=== PATIENT | female | born 1955 | race Caucasian/White ===

== ENCOUNTER 2018-02-03 09:57 | Day surgery (SDC) | payer OTHER ==
[~2018-02-03] VITALS: Ht 167.6 cm; Wt 83.6 kg
[~2018-02-03 09:57] MED LIST: AMOX500 PO; AZIT250; Adipex-P37.5 MG PO; ESZO1; HYDACE5 PO; LEVFLO500 PO; METCAR500 PO; Multi-Day Vita1 EACH PO; PIRO20 PO; PRED20 PO; Synthroid50 MCG; TRAZ100 PO; TRAZ50 PO; VITAMIN D 2 PO; [UNRECOGNIZED DRUG - OTHER] PO
== END 2018-02-03 16:01 | disposition home or self-care (01) ==
LOC: ORSCSDS 09:57
PROVIDERS: Orthopaedic Surgery
PROC: 0RNK4ZZ Release Left Shoulder Joint, Percutaneous Endoscopic Approach (ICD-10-PCS; principal; 2018-02-03 11:30)
PROC: 0RBK4ZZ Excision of Left Shoulder Joint, Percutaneous Endoscopic Approach (ICD-10-PCS; principal; 2018-02-03 11:30)
PROC: 0PBB4ZZ Excision of Left Clavicle, Percutaneous Endoscopic Approach (ICD-10-PCS; principal; 2018-02-03 11:30)
DX: M75.22 Bicipital tendinitis, left shoulder (principal); M19.012 Primary osteoarthritis, left shoulder; M75.32 Calcific tendinitis of left shoulder; M75.52 Bursitis of left shoulder; M75.112 Incomplete rotator cuff tear or rupture of left shoulder, not specified as traumatic; E07.9 Disorder of thyroid, unspecified; E78.5 Hyperlipidemia, unspecified; Z79.899 Other long term (current) drug therapy
CPT/HCPCS: J0171; J2250; J2405; J2765; J2795; J3010; J7120